=== PATIENT | male | born 1970 | race Hispanic/Latino ===

== ENCOUNTER → 2020-06-10 17:02 | Emergency (ER) | payer SELFPAY ==
[2020-06-11 13:42] LABS: SARS-CoV-2 PCR by NAA Not Detected (NotDetected)
== END | disposition home or self-care (01) ==
LOC: CSHERS 17:02
DX: J20.9 Acute bronchitis, unspecified (principal); F17.210 Nicotine dependence, cigarettes, uncomplicated
CPT/HCPCS: 71045; 87635; 93005; U0003; U0005

== ENCOUNTER 2021-04-02 17:30 | Observation (INO) | payer SELFPAY ==
[2021-04-02 18:08] LABS: #Basophils 0.1 10x3/uL (0.0-0.2); #Eosinphils 0.2 10x3/uL (0.0-0.5); #Monocytes 0.5 10x3/uL (0.0-1.1); #Neutrophils 4.2 10x3/uL (1.5-8.4); %Basophils 0.9 % (0.0-2.0); %Eosinophils 2.4 % (0.0-6.0); %Lymphocytes 21.4 % (18.0-47.0); %Monocytes 8.1 % (0.0-10.0); %Neutrophils 66.9 % (40.0-75.0); Hemoglobin 14.3 g/dL (13.5-17.5); Mean Corpuscular HGB CONC 33.5 g/dL (32.0-36.0); Mean Corpuscular Hemoglobin 30.8 pg (27.0-33.0); Mean Platelet Volume 9.9 fl (7.4-10.4); Platelet Count 250 10x3/uL (150-450); RBC Distribution Width 13.6 % (11.5-14.5); Red Blood Cell (RBC) Count 4.64 10x6/uL (4.32-5.72); White Blood Cell (WBC) Count 6.3 10x3/uL (3.5-10.5)
[2021-04-02 18:22] LABS: ALT (SGPT) 27 U/L (8-55); AST (SGOT) 23 U/L (5-34); Albumin 4.6 g/dL (3.5-5.0); Alkaline Phosphatase 106 U/L (40-110); Anion Gap 12 mmol/L (10-20); BUN (Urea Nitrogen) 20 mg/dL (8.4-25.7); Bilirubin, Total 0.4 mg/dL (0.2-1.2); Calc. Creatinine Clearance 0 mL/min (70-130); Calcium 9.3 mg/dL (7.8-10.44); Carbon Dioxide 27 mmol/L (22-29); Chloride 102 mmol/L (98-107); Glucose 91 mg/dL (70-105); Potassium 4.6 mmol/L (3.5-5.1); Protein, Total 7.6 g/dL (6.0-8.3); Sodium 136 mmol/L (136-145)
[2021-04-02] MEDS ORDERED: Nitroglycerin 0.4 MG TAB (25 Tab Bottle) SL PRN (19:49)
[2021-04-02 20:20] VITALS: BMI 23.5
[2021-04-02] MEDS ORDERED: Lisinopril 5 MG TAB PO SCH (21:00)
[2021-04-02] MEDS ORDERED: Aspirin Chewable 81 MG TAB PO SCH (21:00)
[2021-04-02] MEDS: Nitroglycerin 2% Ointment 1 INCH/1 GM Packet TOP SCH (21:05)
[2021-04-02 21:10] LABS: Troponin I Less than 0.010 ng/mL (< 0.028)
[2021-04-02 21:53] LABS: Amphetamine Detected (NotDetected); Barbiturates Screen Not Detected (NotDetected); Benzodiazepine Screen Not Detected (NotDetected); Cocaine Metabolite Screen Detected (NotDetected); Methadone Not Detected (NotDetected); Methamphetamine Detected (NotDetected); Opiate Screen Not Detected (NotDetected); Oxycodone Screen Not Detected (NotDetected); Phencyclidine (PCP) Not Detected (NotDetected); THC/Cannabinoid Screen Not Detected (NotDetected); Tricyclic Screen Not Detected (NotDetected)
[2021-04-02 23:47] LABS: Troponin I Less than 0.010 ng/mL (< 0.028)
[2021-04-03 04:47] LABS: Anion Gap 14 mmol/L (10-20); BUN (Urea Nitrogen) 20 mg/dL (8.4-25.7); Calc. Creatinine Clearance 87 mL/min (70-130); Carbon Dioxide 24 mmol/L (22-29); Cardiac Risk 2.8 (Less than 4.5); Chloride 107 mmol/L (98-107); Cholesterol 171 mg/dl (< 200 Desired); Glucose 85 mg/dL (70-105); HDL Cholesterol 62 mg/dL (>60 Neg Risk); LDL Cholesterol, Calculated 98 mg/dL; Magnesium 2.1 mg/dL (1.6-2.6); Potassium 4.4 mmol/L (3.5-5.1); Sodium 141 mmol/L (136-145); Triglycerides 56 mg/dL (Less than 150)
[2021-04-03 04:52] VITALS: BP 117/72; TEMP 98.6
[2021-04-03] MEDS: Nitroglycerin 2% Ointment 1 INCH/1 GM Packet TOP SCH (05:45)
[2021-04-03] MEDS ORDERED: Enoxaparin Sodium 40 MG/0.4 ML SYRINGE SC SCH (09:00)
[2021-04-03] MEDS ORDERED: Lisinopril 5 MG TAB PO SCH (09:00)
[2021-04-03] MEDS ORDERED: Aspirin Chewable 81 MG TAB PO SCH (09:00)
[2021-04-03 14:54] LABS: SARS-CoV-2 PCR by NAA Not Detected (NotDetected)
== END 2021-04-03 12:00 | disposition home or self-care (01) ==
LOC: CSHERS 17:30 → CSHTELE 20:14
PROVIDERS: ADMIT Family Medicine; ATTEND Family Medicine
DX: R07.9 Chest pain, unspecified (principal); R55 Syncope and collapse; I10 Essential (primary) hypertension; F17.210 Nicotine dependence, cigarettes, uncomplicated; F15.90 Other stimulant use, unspecified, uncomplicated; F14.10 Cocaine abuse, uncomplicated; Z20.822 Contact with and (suspected) exposure to COVID-19; Z59.00 Homelessness unspecified
CPT/HCPCS: 36415; 71045; 80048; 80053; 80061; 80306; 83735; 84484; 85025; 93005; 93306; 96372; G0378; J1650; U0003; U0005

== ENCOUNTER 2021-09-08 16:11 | Emergency (ER) | payer SELFPAY ==
[2021-09-08 16:46] LABS: #Basophils 0.1 10x3/uL (0.0-0.2); #Eosinphils 0.1 10x3/uL (0.0-0.5); #Monocytes 0.5 10x3/uL (0.0-1.1); #Neutrophils 4.3 10x3/uL (1.5-8.4); %Basophils 0.8 % (0.0-2.0); %Eosinophils 1.6 % (0.0-6.0); %Lymphocytes 19.3 % (18.0-47.0); %Monocytes 7.4 % (0.0-10.0); %Neutrophils 70.7 % (40.0-75.0); Hemoglobin 12.5 g/dL (13.5-17.5); Mean Corpuscular HGB CONC 33.7 g/dL (32.0-36.0); Mean Corpuscular Hemoglobin 30.6 pg (27.0-33.0); Mean Corpuscular Volume 90.9 fl (81.2-95.1); Mean Platelet Volume 10.1 fl (7.4-10.4); Platelet Count 242 10x3/uL (150-450); RBC Distribution Width 12.9 % (11.5-14.5); Red Blood Cell (RBC) Count 4.08 10x6/uL (4.32-5.72); White Blood Cell (WBC) Count 6.1 10x3/uL (3.5-10.5)
[2021-09-08 17:05] LABS: ALT (SGPT) 19 U/L (8-55); AST (SGOT) 18 U/L (5-34); Albumin 4.2 g/dL (3.5-5.0); Alkaline Phosphatase 106 U/L (40-110); Anion Gap 11 mmol/L (10-20); BUN (Urea Nitrogen) 20 mg/dL (8.4-25.7); Bilirubin, Total 0.3 mg/dL (0.2-1.2); Calc. Creatinine Clearance 0 mL/min (70-130); Calcium 9.3 mg/dL (7.8-10.44); Carbon Dioxide 28 mmol/L (22-29); Chloride 107 mmol/L (98-107); Estimated GFR 95; Globulin 2.9 g/dL (2.4-3.5); Glucose 97 mg/dL (70-105); Potassium 4.2 mmol/L (3.5-5.1); Protein, Total 7.1 g/dL (6.0-8.3); Sodium 142 mmol/L (136-145)
[2021-09-08 18:58] LABS: Troponin I Less than 0.010 ng/mL (< 0.028)
== END 2021-09-08 19:35 | disposition home or self-care (01) ==
LOC: CSHERS 16:11
DX: R07.2 Precordial pain (principal); I10 Essential (primary) hypertension; F17.210 Nicotine dependence, cigarettes, uncomplicated
CPT/HCPCS: 36415; 71045; 80053; 84484; 85025; 93005